=== PATIENT | male | born 1965 | race Caucasian/White ===

== ENCOUNTER 2022-07-03 17:49 | Observation (INO) ==
[2022-07-03] MEDS ORDERED: SODIUM CHLORIDE 0.9% 1000ML 1,000 ML IV ONE (18:59)
[2022-07-03] MEDS ORDERED: HYDROmorphone INJ 0.5 MG/0.5 ML SYR IV STA ×2 (19:29→20:35)
[2022-07-03] MEDS ORDERED: ONDANSETRON INJ 2 MG/ML 2 ML VIAL IV STA (19:29)
[2022-07-03] MEDS ORDERED: KETOROLAC TROMETHAMINE 15 MG/ML VIAL IV STA (19:29)
[2022-07-03] MEDS ORDERED: ACETAMINOPHEN 500 MG TAB PO STA (19:29)
[2022-07-03 19:41] LABS: Basophils # (auto) 0.04 K/uL (0-0.2); Basophils % (auto) 0.5 %; Eosinophils # (auto) 0.08 K/uL (0-0.50); Eosinophils % (auto) 1.1 %; Immature Granulocytes # (auto) 0.03 K/uL (0.00-0.02); Immature Granulocytes % (auto) 0.4 %; Lymphocytes % (auto) 12.2 %; Mean Corpuscular Hemoglobin 29.2 pg (25.0-34.0); Mean Corpuscular Hgb Conc 33.3 g/dL (32.0-36.0); Mean Corpuscular Volume 87.5 fL (80.0-100.0); Mean Platelet Volume 10.1 fL (9.4-12.4); Monocytes # (auto) 0.82 K/uL (0.24-0.82); Monocytes % (auto) 11.1 %; Neutrophils # (auto) 5.49 K/uL (1.4-6.5); Neutrophils % (auto) 74.7 %; Platelet Count 240 K/uL (130-400); RDW Coefficient of Variation 12.6 % (11.5-14.5); RDW Standard Deviation 40.1 fL (36.4-46.3); Red Blood Count 5.14 M/uL (4.63-6.08); White Blood Count 7.36 K/ul (4.8-10.8)
[2022-07-03 20:03] LABS: Albumin Globulin Ratio 1.7 (0.9-2); Albumin Level 4.3 gm/dl (3.4-5.0); BUN Creatinine Ratio 14.7 (10-20); Bilirubin,Total 0.6 mg/dl (0.2-1.0); Calcium 9.4 mg/dl (8.5-10.1); Est GFR (African American) 81.1 ml/min; Globulin 2.5 gm/dl (2.5-4.0); Potassium 4.3 mmol/L (3.5-5.1); Total Protein 6.8 gm/dl (6.0-8.3)
--- NOTE | 2022-07-03 20:14 | XRay Report ---
XR chest 1V portable HISTORY: Covid positive. Cough. COMPARISON: None. FINDINGS: The lungs are clear. Cardiac silhouette is normal in size. No pleural effusions. No pneumot horax. IMPRESSION: No acute process. ACT 112: Negative or not required by law. Electronically signed by: Morteza Sen M.D. 07/03/2022 8:13 PM
--- NOTE | 2022-07-03 20:15 | Emergency Department Note ---
Impression & Plan COVID-19, Flu-like symptoms ED Provider Note INFORMANT: Patient ED PROVIDER(S): Guilherme Del Cid MD CHIEF COMPLAINT: COVID PLAN: Disposition: Admitted Condition: Good Outpatient prescription management: none Referral: None MEDICAL DECISION MAKING: Patient presented to emergency department because of malaise and flulike symptoms. He had a positive COVID home test. Work-up was initiated. He had an unremarkable CBC and chemistry panel. The patient's chest x-ray was negative. He was treated with saline hydration, Toradol, Tylenol, and IV Dilaudid. The patient was given a second dose of IV Dilaudid 0.5 mg. He had an ice pack applied to his neck as he requested this. He was feeling much better and clinically looked well. He maintained good vital signs throughout his entire time in the emergency department. We did discuss treatment with Willy and I did review this with the pharmacist. We went over his medications and interaction potential. The patient also then noted his pharmacy that he would like for discharge. The patient then felt like he could not be discharged as he was concerned that he would not be able to deal with his illness. He states that he was in mental health crisis even before he traveled to [place]. The patient feels like he is going to breakdown and harm himself if he is discharged. I did notify the ED psychiatric case maker. She noted with the COVID illness that the patient would need to be admitted medically and psychiat ry would need to be consulted.I did consult with Dr. Laboy of internal medicine. We discussed the case. She evaluated patient and admitted him for further management. Triage Nursing notes reviewed and agree them. Vital Signs: reviewed and remarkable for no significant abnormalities Differential diagnosis: Viral syndrome, otitis, pharyngitis, pneumonia, influenza, meningitis, urinary tract infection, sepsis, bacteremia, as well as other pathologies. Diagnostics interpreted by me: ECG: none Cardiac Monitoring: Cardiac monitoring ordered by me: The patient was placed on continuous cardiac monitoring and observed. It revealed a normal sinus rhythm at 93 beats per minute without ectopy or evidence of dysrhythmia. Imaging studies: Chest x-ray. Findings: A chest x-ray was performed and revealed no pneumothorax, effusion, infiltrate, pulmonary edema, free air under the diaphragm, or wide mediastinum. Impression: No acute disease. HPI: The patient is a 57 year old male who presents to the Emergency Room with complaints of flulike symptoms. This started about 3 days ago with a dry cough and is much worse today. The patient also notes the following associated symptoms, myalgias, arthralgias, headache, continued dry cough. The patient has tried and tramadol for relieving factors. Current pain is rated as 9/10. Patient states he has a history of chronic pain syndrome from severe depression. He took a home COVID test today was positive. He had some nausea as well. Pt denies LOC, chills, diaphoresis, visual changes, neck pain, chest pain, breathing difficulties, vomiting, abdominal pain, back pain, melena, hematochezia, urinary symptoms, numbness, weakness, lymphadenopathy, rash, or other complaints. ROS: See above HPI for pertinent positives & negatives. A total of 10 systems reviewed and were otherwise negative. PAST MEDICAL HISTORY:See Below , depression, chronic pain PAST SURGICAL HISTORY:See Below, FAMILY HISTORY:See Below SOCIAL HISTORY:See Below, non-smoker. Visiting from [place]. HOME MEDICATIONS:See Below ALLERGIES:See Below VITALS:See Below PHYSICAL EXAMINATION: GENERAL: Awake, alert, mildly ill-appearing, in no distress HENT: Normocephalic, atraumatic. Oropharynx unremarkable. EYES: Normal conjunctiva. Sclera non-icteric. NECK: Inspection normal. Non-tender. Supple. No nuchal rigidity. FROM. No francis s. RESPIRATORY: Clear to auscultation. No wheezes. No rales. Normal respiratory effort. CARDIAC: Borderline tachycardic rate. Normal rhythm. No murmurs. No rubs. Extremities warm and well perfused. Pulses equal. No JVD. GI: Soft, non-distended. No tenderness to palpation. No rebound or guarding. No masses. RECTAL: Deferred. MUSCULOSKELETAL: Atraumatic. Chest examination reveals no tenderness. The back is symmetrical on inspection without obvious abnormality. There is no CVA tenderness to palpation. No joint edema. LOWER EXTREMITIES: Calves are equal size bilaterally and non-tender. No edema. No discoloration. NEURO: Normal sensorium. No sensory or motor deficits noted. SKIN: No rash or jaundice noted. Guilherme Del Cid MD Past Med/Surg History Medical History (Updated 07/04/22 @ 00:48 by Sarah Laboy DO) Anxiety Depression Diabetes Fibromyalgia Surgical History (Updated 07/04/22 @ 00:48 by Sarah Laboy DO) No significant past surgical history Family History (Updated 07/04/22 @ 00:48 by Sarah Laboy DO) Other Anxiety Social History Smoking Status: Never smoker Preferred Language: Faroese Feels Safe at Home: Yes Allergies Allergies Allergy/AdvReac Type Severity Reaction Status Date / Time bupropion [From Wellbutrin] Allergy Intermediate Rash Verified 07/03/22 20:52 nicotine AdvReac Intermediate Nausea Verified 07/03/22 20:52 Home Meds Home Medications Medication Instructions Recorded Confirmed atorvastatin 10 mg tablet 10 mg PO DAILY 07/03/22 07/03/22 duloxetine 60 mg capsule,delayed 60 mg PO DAILY 07/03/22 07/03/22 release fluticasone propionate 50 2 spray intranasal DAILY 07/03/22 07/03/22 mcg/actuation nasal spray,suspension lorazepam 1 mg tablet 1 mg PO BID 07/03/22 07/03/22 meloxicam 15 mg tablet 15 mg PO DAILY 07/03/22 07/03/22 metformin 500 mg tablet,extended 500 mg PO DAILY 07/03/22 07/03/22 release 24 hr methylphenidate HCl 10 mg tablet 10 mg PO DAILY 07/03/22 07/03/22 [id number]-reg-DV 0.4 mg-calcium 162 1 tab PO DAILY 07/03/22 07/03/22 mg-iron 18 ss-mvosrca-gwjqvk tablet tramadol 50 mg tablet 50 mg PO Q4H PRN Pain 07/03/22 07/04/22 cyclobenzaprine 10 mg tablet 10 mg PO BID PRN MUSCLE SPASMS 07/04/22 07/04/22 Results & Data (ED) Vital Signs Vital Signs - 24 hr 07/03/22 18:07 07/03/22 19:35 07/03/22 20:00 Temperature 37.6 C H Temperature Source Temporal Artery Scan Pulse Rate 101 H Pulse Rate from SpO2 Sensor 98 H Respiratory Rate 23 Respiratory Effort / Characteristics Non-Labored Respiratory Depth Normal Blood Pressure 146/89 H 143/113 H Blood Pressure Mean 108 123 Pulse Oximetry 98 95 Oxygen Delivery Method Room Air Sepsis Recent Fever Within 48 Hours Yes Sepsis New/Unexplained Change in Mental Status N/A Sepsis Action Taken by Nursing No Action Required 07/03/22 20:00 07/03/22 20:30 07/03/22 21:00 Temperature Temperature Source Pulse Rate Pulse Rate from SpO2 Sensor 99 H 97 H Respiratory Rate Respiratory Effort / Characteristics Respiratory Depth Blood Pressure 140/91 Blood Pressure Mean 107 Pulse Oximetry 93 92 Oxygen Delivery Method Sepsis Recent Fever Within 48 Hours Sepsis New/Unexplained Change in Mental Status Sepsis Action Taken by Nursing 07/03/22 21:00 07/03/22 21:30 07/03/22 21:30 Temperature Temperature Source Pulse Rate Pulse Rate from SpO2 Sensor 92 H 92 H Respiratory Rate Respiratory Effort / Characteristics Respiratory Depth Blood Pressure 136/89 Blood Pressure Mean 104 Pulse Oximetry 90 91 Oxygen Delivery Method Sepsis Recent Fever Within 48 Hours Sepsis New/Unexplained Change in Mental Status Sepsis Action Taken by Nursing 07/03/22 22:00 07/03/22 22:00 07/03/22 22:30 Temperature Temperature Source Pulse Rate Pulse Rate from SpO2 Sensor 88 Respiratory Rate Respiratory Effort / Characteristics Respiratory Depth Blood Pressure 117/80 126/77 Blood Pressure Mean 92 93 Pulse Oximetry 92 Oxygen Delivery Method Sepsis Recent Fever Within 48 Hours Sepsis New/Unexplained Change in Mental Status Sepsis Action Taken by Nursing 07/03/22 22:30 Temperature Temperature Source Pulse Rate Pulse Rate from SpO2 Sensor 84 Respiratory Rate Respiratory Effort / Characteristics Respiratory Depth Blood Pressure Blood Pressure Mean Pulse Oximetry 91 Oxygen Delivery Method Sepsis Recent Fever Within 48 Hours Sepsis New/Unexplained Change in Mental Status Sepsis Action Taken by Nursing Laboratory Data Result diagrams: 07/03/22 19:29 07/03/22 19:29 Lab Results 07/03/22 07/03/22 07/03/22 Range/Units 19:29 19:29 21:09 WBC 7.36 (4.8-10.8) K/ul RBC 5.14 (4.63-6.08) M/uL Hgb 15.0 (14.0-18.0) g/dl Hct 45.0 (40.1-51.0) % MCV 87.5 (80.0-100.0) fL MCH 29.2 (25.0-34.0) pg MCHC 33.3 (32.0-36.0) g/dL RDW Std Deviation 40.1 (36.4-46.3) fL RDW Coeff of Angela 12.6 (11.5-14.5) % Plt Count 240 (130-400) K/uL MPV 10.1 (9.4-12.4) fL Immature Gran % (Auto) 0.4 % Neut % (Auto) 74.7 % Lymph % (Auto) 12.2 % Collin % (Auto) 11.1 % Eos % (Auto) 1.1 % Baso % (Auto) 0.5 % Neut # (Auto) 5.49 (1.4-6.5) K/uL Lymph # (Auto) 0.90 L (1.2-3.4) K/uL Collin # (Auto) 0.82 (0.24-0.82) K/uL Eos # (Auto) 0.08 (0-0.50) K/uL Baso # (Auto) 0.04 (0-0.2) K/uL Immature Gran # (Auto) 0.03 H (0.00-0.02) K/uL Sodium 137 (136-145) mmol/L Potassium 4.3 (3.5-5.1) mmol/L Chloride 102 (98-107) mmol/L Carbon Dioxide 29 (21-32) mmol/L Anion Gap 6 (3-11) BUN 17 (6-23) mg/dl Creatinine 1.16 (0.6-1.4) mg/dl Est Cr Clr Drug Dosing 94.0 ml/min Est GFR ( Amer) 81.1 ml/min Est GFR (Non-Af Amer) 70.0 ml/min BUN/Creatinine Ratio 14.7 (10-20) Glucose 99 (70-99(Fasting)) mg/dl Calcium 9.4 (8.5-10.1) mg/dl Total Bilirubin 0.6 (0.2-1.0) mg/dl AST 31 (13-39) U/L ALT 33 (7-52) U/L Alkaline Phosphatase 54 (34-104) U/L Total Protein 6.8 (6.0-8.3) gm/dl Albumin 4.3 (3.4-5.0) gm/dl Globulin 2.5 (2.5-4.0) gm/dl Albumin/Globulin Ratio 1.7 (0.9-2) SARS-CoV-2 (PCR) POSITIVE A* (Negative) Administered Medications Discontinued Medications Acetaminophen (Acetaminophen 500 Mg Tab) 1,000 mg PO NOW STA Stop: 07/03/22 19:30 Last Admin: 07/03/22 19:48 Dose: 1,000 mg Documented By: [id number] Hydromorphone HCl (Hydromorphone Inj 0.5 Mg/0.5 Ml Syr) 0.5 mg IV NOW STA Stop: 07/03/22 19:30 Last Admin: 07/03/22 19:49 Dose: 0.5 mg Documented By: [id number] Hydromorphone HCl (Hydromorphone Inj 1 Mg/Ml Syringe) 1 mg IV NOW STA Stop: 07/03/22 20:33 Last Admin: 07/03/22 20:58 Dose: Not Given Documented By: [id number] Hydromorphone HCl (Hydromorphone Inj 0.5 Mg/0.5 Ml Syr) 0.5 mg IV NOW STA Stop: 07/03/22 20:36 Last Admin: 07/03/22 21:07 Dose: 0.5 mg Documented By: [id number] Sodium Chloride (Nss 1000ml) 1,000 mls @ 999 mls/hr IV .Q1H1M ONE Stop: 07/03/22 19:59 Last Infusion: 07/03/22 21:12 Dose: 0 mls/hr Documented By: [id number] Admin: 07/03/22 19:23 Dose: 999 mls/hr Documented By: [id number] Ketorolac Tromethamine (Ketorolac Tromethamine 15 Mg/Ml Vial) 15 mg IV NOW STA Stop: 07/03/22 19:30 Last Admin: 07/03/22 19:49 Dose: 15 mg Documented By: [id number] Ondansetron HCl (Ondansetron Inj 2 Mg/Ml 2 Ml Vial) 4 mg IV NOW STA Stop: 07/03/22 19:30 Last Admin: 07/03/22 19:49 Dose: 4 mg Documented By: [id number] Imaging Data Radiologist's Impression: Chest X-Ray 07/03/22 18:13 XR chest 1V portable HISTORY: Covid positive. Cough. COMPARISON: None. FINDINGS: The lungs are clear. Cardiac silhouette is normal in size. No pleural effusions. No pneumothorax. IMPRESSION: No acute process. ACT 112: Negative or not required by law. Electronically signed by: Morteza Sen M.D. 07/03/2022 8:13 PM Discharge Plan Visit Data Chief Complaint: Flu Like Symptoms Stated Complaint: TESTED POSITIVE COVID,FEVER,BODY ACHE,VERTIGO ED Provider: Guilherme Del Cid Discharge Problem: COVID-19, Flu-like symptoms Patient Disposition: Admitted As Inpatient Discharge Instructions Interventions: ED Discharge Assessment Last Done: 07/04/22 02:03
[2022-07-03] MEDS ORDERED: HYDROmorphone INJ 1 MG/ML SYRINGE IV STA (20:32)
--- NOTE | 2022-07-04 00:38 | History & Physical Report ---
Date of Service July 04, 2022 Assessment & Plan (1) COVID-19: Plan: 57yo male presenting with body pain/anxiety and SI. Also with three days of cough and congestion, body aches. Found to be POSITIVE for Covid-19 infection. Patient has received 2 vaccinations + booster thus far. Has never had Covid-19 before. He is not hypoxic, no respiratory distress. -Continue to monitor -Presently no indication for supplemental O2, Dexamethasone or Remdesivir -Consider Paxlovid treatment on discharge - risk for severe disease include obesity and h/o DM (2) Anxiety: Plan: Patient reports severe anxiety associated with full body pain. Also with SI. Patient verbally contracted for safety during hospital stay. -Continue Duloxetine -Continue Lorazepam BID -Will add PRN Hydroxyzine for anxiety -Continue Tramadol -Continue Meloxicam -Continue Cyclobenzaprine -Ideally avoid additional treatment with opioids (3) Diabetes: Plan: Chronic. Patient reports adequate control with Metformin -Hold Metformin while inpatient -ISS, goal blood sugar 110 - 140 -Continue Atorvastatin (4) Fibromyalgia: Plan: Chronic -Continue Duloxetine, Cyclobenzaprine, Meloxicam, Tramadol History of Present Illness Chief Complaint: anxiety, SI, Covid-19 Primary Care Provider: NO PCP Guilherme Gold is a 57yo male with history of depression and anxiety, DM and fibromyalgia. He is from [place] and follows regularly with a PCP there. He is in [place] presently visiting his cousins. He reports a significant increase in his level of anxiety associated with the trip to [place] - being away from home, out of his routine, some concerns about Covid etc. With his anxiety he gets body pain - mostly in his head, neck and back. His pain is severe at present. He has also had frequent intrusive thoughts of suicide over the last several days. He reports he has thought about overdosing on his medications and thought about driving his car into something to kill himself. He has had prior SI and attempted to cut himself once in the past. Patient also with dry cough and congestion over the last 3 days a well as fever. He denies chest pain, SOB, abdominal pain. He tested POSITIVE for Covid-19 on a home test prior to arrival. Findings confirmed on ER test. His O2 saturations have been adequate. He is vaccinated x 2 and has received a single booster as well. He has been working with his doctor in [place] to get the next booster. Patient was evaluated in the ER. His Covid-19 symptoms were stable - no hypoxia. No indication for treatment with supplemental O2 or Dexamethasone. His pain was treated with IV Toradol as well as Dilaudid and Tylenol. Patient reports that he is unable to go home due to a mental health crisis. He is afraid that his pain will come back and will be untreatable with his home medications. He endorses ongoing suicidal ideations. No HI, AH/VH. Allergies Allergy/AdvReac Type Severity Reaction Status Date / Time bupropion [From Wellbutrin] Allergy Intermediate Rash Verified 07/03/22 20:52 nicotine AdvReac Intermediate Nausea Verified 07/03/22 20:52 Home Medications Medication Instructions Recorded Confirmed Type atorvastatin 10 mg tablet 10 mg PO DAILY 07/03/22 07/03/22 History cyclobenzaprine 10 mg tablet 10 mg PO DIRECTED PRN MUSCLE 07/03/22 07/03/22 History SPASMS duloxetine 60 mg capsule,delayed 60 mg PO DAILY 07/03/22 07/03/22 History release fluticasone propionate 50 2 spray intranasal DAILY 07/03/22 07/03/22 History mcg/actuation nasal spray,suspension lorazepam 1 mg tablet 1 mg PO BID 07/03/22 07/03/22 History meloxicam 15 mg tablet 15 mg PO DAILY 07/03/22 07/03/22 History metformin 500 mg tablet,extended 500 mg PO DAILY 07/03/22 07/03/22 History release 24 hr methylphenidate HCl 10 mg tablet 10 mg PO DAILY 07/03/22 07/03/22 History utcuuysp-wnt-OR 0.4 mg-calcium 162 1 tab PO DAILY 07/03/22 07/03/22 History mg-iron 18 ci-yunognl-xyqekv tablet tramadol 50 mg tablet 50 mg PO DIRECTED PRN Pain 07/03/22 07/03/22 History Past Med/Surg History Medical History (Updated 07/04/22 @ 00:48 by Sarah Laboy DO) Anxiety Depression Diabetes Fibromyalgia Surgical History (Updated 07/04/22 @ 00:48 by Sarah Laboy DO) No significant past surgical history Family History (Updated 07/04/22 @ 00:48 by Sarah Laboy DO) Other Anxiety Social History Smoking Status: Never smoker Preferred Language: Guamanian Feels Safe at Home: Yes Review of Systems Review of Systems: All systems reviewed & are unremarkable except as noted in HPI & below Physical Exam Physical Exam: General: patient resting comfortably, NAD, non-toxic in appearance, AA&O x 4 Skin: warm, dry, intact, no rashes or lesions HEENT: NC/AT, PERRL, EOMI, anicteric sclera, conjunctiva without injection, external ear normal to inspection and nontender, nares patent, moist mucus membranes, dentition intact, no oropharyngeal lesions, neck supple, trachea midline, no LAD, no thyromegaly, no JVD Heart: +S1/S2, regular, no m/r/g Lungs: equal air entry bilaterally, no rales/rhonchi/wheezes Abd: +BS, soft, NT/ND, no masses/organomegaly/ascites Ext: warm, 2+ pulses in UE/LE bilaterally, no clubbing/cyanosis or edema Neuro: nonfocal, patient AA&O x 4, speech intact, no facial droop, moving all extremities on command with equal strength 5/5 Results & Data Results & Data (MN) Vital Signs (Past 12 Hours) Vital Signs Temp Pulse Resp BP Pulse Ox O2 Del Method 07/03/22 22:30 91 07/03/22 22:30 126/77 07/03/22 22:00 92 07/03/22 22:00 117/80 07/03/22 21:30 91 07/03/22 21:30 136/89 07/03/22 21:00 90 07/03/22 21:00 140/91 07/03/22 20:30 92 07/03/22 20:00 93 07/03/22 20:00 143/113 H 07/03/22 19:35 95 07/03/22 18:07 37.6 C H 101 H 23 146/89 H 98 Room Air Laboratory Results Laboratory Results WBC 7.36 K/ul (4.8-10.8) 07/03/22 19:29 RBC 5.14 M/uL (4.63-6.08) 07/03/22 19:29 Hgb 15.0 g/dl (14.0-18.0) 10/18/22 19:29 Hct 45.0 % (40.1-51.0) 07/03/22: MCV 87.5 fL (80.0-100.0) 07/03/22 MCH 29.2 pg (25.0-34.0) 07/03/22 MCHC 33.3 g/dL (32.0-36.0) 07/03/22 RDW Std Deviation 40.1 fL (36.4-46.3) 07/03/22 RDW Coeff of Angela 12.6 % (11.5-14.5) 07/03/22 Plt Count 240 K/uL (130-400) 07/03/22 MPV 10.1 fL (9.4-12.4) 07/03/22 Immature Gran % (Auto) 0.4 % 07/03/22 Neut % (Auto) 74.7 % 07/03/22 Lymph % (Auto) 12.2 % 07/03/22: [place] % (Auto) 11.1 % 07/03/22 Eos % (Auto) 1.1 % 07/03/22 Baso % (Auto) 0.5 % 07/03/22 Neut # (Auto) 5.49 K/uL (1.4-6.5) 07/03/22 Lymph # (Auto) 0.90 K/uL (1.2-3.4) L 07/03/22 [place] # (Auto) 0.82 K/uL (0.24-0.82) 07/03/22 Eos # (Auto) 0.08 K/uL (0-0.50) 07/03/22 Baso # (Auto) 0.04 K/uL (0-0.2) 07/03/22 Immature Gran # (Auto) 0.03 K/uL (0.00-0.02) H 07/03/22: Sodium 137 mmol/L (136-145) 07/03/22 Potassium 4.3 mmol/L (3.5-5.1) 10/18/22 19:29 Chloride 102 mmol/L (98-107) 07/03/22 19:29 Carbon Dioxide 29 mmol/L (21-32) 07/03/22 19:29 Anion Gap 6 (3-11) 07/03/22 19:29 BUN 17 mg/dl (6-23) 07/03/22 19: Creatinine 1.16 mg/dl (0.6-1.4) 07/03/22 19: Est Cr Clr Drug Dosing 94.0 ml/min 07/03/22 19:29 Est GFR ( Amer) 81.1 ml/min 07/03/22 19:29 Est GFR (Non-Af Amer) 70.0 ml/min 07/03/22 19: BUN/Creatinine Ratio 14.7 (10-20) 07/03/22 19: Glucose 99 mg/dl (70-99(Fasting)) 07/03/22 19: Calcium 9.4 mg/dl (8.5-10.1) 07/03/22 19: Total Bilirubin 0.6 mg/dl (0.2-1.0) 07/03/22 19:29 AST 31 U/L (13-39) 07/03/22 19:29 ALT 33 U/L (7-52) 07/03/22 19:29 Alkaline Phosphatase 54 U/L (34-104) 07/03/22 19:29 Total Protein 6.8 gm/dl (6.0-8.3) 07/03/22 19: Albumin 4.3 gm/dl (3.4-5.0) 07/03/22 19: Globulin 2.5 gm/dl (2.5-4.0) 07/03/22 19:29 Albumin/Globulin Ratio 1.7 (0.9-2) 07/03/22 19:29 SARS-CoV-2 (PCR) POSITIVE (Negative) A* 07/03/22 21:09 Impressions Chest X-Ray 07/03/22 18:13 XR chest 1V portable HISTORY: Covid positive. Cough. COMPARISON: None. FINDINGS: The lungs are clear. Cardiac silhouette is normal in size. No pleural effusions. No pneumothorax. IMPRESSION: No acute process. ACT 112: Negative or not required by law. Electronically signed by: Morteza Sen M.D. 07/03/2022 8:13 PM Code Status & VTE Plan VTE Prophylaxis Plan VTE Prophylaxis will be ordered: Yes PG Care Time/CCT Total # of Minutes Spent Total Time Spent with Patient: Total time spent is greater than 50% in coordination of care (as documented) at patient's floor/unit and/or counseling patient: Coding Level of Care Code INT OBSERVATION CARE 50M LVL 2 Diagnoses COVID-19 U07.1 Anxiety F41.9 Diabetes E11.9 Fibromyalgia M79.7
[2022-07-04] MEDS ORDERED: GLUCOSE 10 TAB/TUBE PO PRN (02:17)
[2022-07-04] MEDS ORDERED: GLUCAGON FOR INJ 1 MG VIAL SQ PRN (02:17)
[2022-07-04] MEDS ORDERED: GLUCOSE 40% GEL 15 GM TUBE PO PRN (02:17)
[2022-07-04] MEDS ORDERED: CARBOHYDRATES FOR HYPOGLYCEMIA PO PRN (02:17)
[2022-07-04] MEDS ORDERED: DEXTROSE 50% 50 ML SYRINGE IV PRN (02:17)
[2022-07-04] MEDS ORDERED: ONDANSETRON INJ 2 MG/ML 2 ML VIAL IV PRN (02:17)
[2022-07-04] MEDS ORDERED: hydrOXYzine HCl 10 MG TAB PO PRN (02:17)
[2022-07-04] MEDS: traMADol HCL 50 MG TABLET PO PRN ×4 (04:46→19:14)
[2022-07-04] MEDS: CYCLOBENZAPRINE HCL 10 MG TAB PO PRN ×2 (05:18→21:51)
[2022-07-04] MEDS ORDERED: MELATONIN 3 MG TAB PO PRN (05:58)
[2022-07-04] MEDS ORDERED: LORazepam 1 MG TAB PO PRN (05:59)
--- NOTE | 2022-07-04 06:01 | Communication Note ---
Date of Service: July 04, 2022 Messaged by nursing that patient was belligerent and yelling at staff. Patient asking for Ambien for sleep and for his 1mg PO Ativan BID scheduled (home med) to be given on a prn basis so that he can receive it when he feels he needs it. I am adding prn melatonin to sleep. Not adding Ambien. Changing BID Ativan to q12h prn. Per review of his med list, I am concerned about polypharmacy. Psych to follow.
[2022-07-04] MEDS ORDERED: METHYLPHENIDATE HCL 10 MG TABLET PO SCH (07:00)
[2022-07-04 07:38] LABS: Estimated Average Glucose 143 mg/dl; Hemoglobin A1C 6.6 % (4.5-5.6)
[2022-07-04] MEDS: MELOXICAM 7.5 MG TAB PO SCH (07:59)
[2022-07-04] MEDS: ATORVASTATIN 10 MG TAB PO SCH (07:59)
[2022-07-04] MEDS: ENOXAPARIN INJ 40 MG/0.4 ML SYR SQ SCH (08:00)
[2022-07-04] MEDS: FLUTICASONE PROPIONATE NA SPR 16 GM BTL SCH (08:00)
[2022-07-04] MEDS: DULoxetine HCL 60 MG CAP PO SCH (08:01)
[2022-07-04] MEDS: ACETAMINOPHEN 500 MG TAB PO PRN ×2 (08:11→19:13)
[2022-07-04] MEDS: INSULIN ASPART PER UNIT SC SCH ×4 (08:44→22:39)
[2022-07-04] MEDS ORDERED: Flu Vaccine (Fluarix) 0.5mL SYR (Standard Dose) IM ONE (09:00)
[2022-07-04] MEDS ORDERED: LORazepam 1 MG TAB PO SCH (09:00)
--- NOTE | 2022-07-04 09:21 | Electrocardiogram Report ---
Test Reason : Blood Pressure : / mmHG Vent. Rate : 099 BPM Atrial Rate : 099 BPM P-R Int : 150 ms QRS Dur : 088 ms QT Int : 308 ms P-R-T Axes : 026 033 -42 degrees QTc Int : 395 ms Sinus rhythm with Premature atrial complexes Incomplete right bundle branch block Diffuse Minor Nonspecific T wave abnormality Abnormal ECG No previous ECGs available Confirmed by Jean Carson ([id number]) on 07/04/2022 9:20:52 AM Referred By: REFERRED SELF Confirmed By:Jean Carson
--- NOTE | 2022-07-04 12:08 | Hospitalist Progress Note ---
Date of Service July 04, 2022 Assessment & Plan (1) COVID-19: Plan: Supportive care. Parenteral steroid therapy. He is not requiring oxygen with no evidence of viral pneumonia. Patient has received 2 vaccinations + booster thus far. Has never had Covid-19 before. (2) Anxiety: Plan: Supportive care. Continue Duloxetine. Continue Lorazepam BID. Await psychiatry consultation and recommendations (3) Diabetes: Plan: Chronic. Type II. Patient reports adequate control with Metformin. Hold Metformin while inpatient. ADA diet. Sliding scale coverage as needed. Intravenous steroids may cause transient hyperglycemia. (4) Fibromyalgia: Plan: Chronic. Continue Duloxetine, Cyclobenzaprine, Meloxicam, Tramadol Plan Eventual discharge to home Admission and Anticipated Discharge Date Admission Date: July 04, 2022 Subjective Alert and oriented. No distress. He is complaining of a headache and flulike symptoms. He agrees to intravenous Decadron therapy. Psychiatry evaluation is pending. He is not requiring any supplemental oxygen at this time and is hemodynamically stable. Review of Systems Review of Systems: Constitutional-objective fever symptoms. Headache ENT-no blurred vision, no double vision, no epistaxis, no sore throat Respiratory-no cough, no wheezing, no shortness of breath Cardiac-no palpitations, no chest pain, no syncope GI-no nausea, vomiting, diarrhea, melena, hematochezia -no urinary retention, no urinary incontinence, no dysuria, no hematuria Musculoskeletal-no joint pain, no muscle tenderness Skin-no bruising, no rashes, no pruritus Neuro-no isolated weakness, no paresthesia, no weakness Psych- suicidal ideation Physical Exam Physical Exam: General-alert and oriented x3. Chills HEENT-head atraumatic and normocephalic, pupils equal and reactive to light, extraocular muscles intact Neck-no lymphadenopathy or thyromegaly, trachea midline Chest-clear to auscultation percussion. No rales wheezing or rhonchi Cardiac-regular rate and rhythm, normal S1 and S2, no murmurs Abdomen-normal bowel sounds, nontender, no hepatosplenomegaly Extremities-no cyanosis, clubbing, or edema Neuro-cranial nerves II through XII intact, motor and sensory function within normal limits, strength symmetrical , no focal deficits Psych-depressed affect Results & Data Results & Data ([facility]) Vital Signs (Past 12 Hours) Vital Signs Temp Pulse Resp BP Pulse Ox O2 Del Method 07/04/22 08:37 37.5 C 93 H 16 114/74 92 Room Air 07/04/22 02:31 37.4 C 93 H 18 133/78 97 Room Air 07/04/22 02:17 37.4 C 93 H 18 133/78 97 Room Air 07/04/22 02:00 92 H 20 138/94 98 Room Air Laboratory Results 07/03/22 19:29 07/03/22 19:29 PG Care Time/CCT Total # of Minutes Spent Total Time Spent with Patient: Total time spent is greater than 50% in coordination of care (as documented) at patient's floor/unit and/or counseling patient: Coding Level of Care Code 18050 Subseq Hosp Care Lvl 3 Diagnoses COVID-19 U07.1 Anxiety F41.9 Diabetes E11.9 Fibromyalgia M79.7
--- NOTE | 2022-07-04 14:09 | Psychiatric Consultation ---
Date of Consultation July 04, 2022 Impression / Recommendations Impression 57 yo man admitted for COVID-19+ symptoms and after making statements of SI during discharge process from ED resulting in medical admission. Diagnostically consistent with history of MDD, OMKAR with adjustment disorder with mixed disturbance of emotions and conduct in context of pain from COVID-19 and contingent SI/possible malingering component with wanting pain medication due to distress and using SI as means to achieve this/relay this level of physical distress. Acute risk of self-harm is now low given denial of SI, future- oriented, outpatient providers, improved sleep, improved mood, lack of access to lethal means and improvement in pain with tramadol. Chronic risk remains moderate given history of prior psychiatric hospitalizations, chronic pain/chronic medical condition but no history of prior attempts and feels well supported by his cousin and outpatient providers in [place]. He is not interested in nor does he meet criteria for inpatient psychiatric hospitalization at this time. Agree with Cymbalta, lorazepam and hydroxyzine as ordered. (1) Adjustment disorder with mixed disturbance of emotions and conduct: (2) COVID-19: (3) Depression: (4) Anxiety: (5) Fibromyalgia: Plan -Can discontinue 1-on-1 -Doesn't meet 302 criteria any longer, can leave AMA if desired -Stable for discharge from psychiatric standpoint -Encouraged him to complete safety plan which he is agreeable to, and will be provided with workbook for additional coping skills and local resources -Psych souleymane to confirm his outpatient appointments in [place] (has scheduled f/up with psych and therapist but he cannot recall specific dates/times of these appointments) -Plans to return to cousin's home where he feels well supported and can remain until he recovers from COVID-19 infection Risk Factors Assessment Male: Yes : Yes Do You Have Access To A Gun?: No Health Problems: Yes Mental Health Diagnoses: Yes Substance Use Disorders: No Previous Attempt: No Family History of Suicide: No Previous Psychiatric Hospitalization: Yes Hopelessness: No Protective Factors Assessment Stable Relationships: Yes Supportive Family: Yes Good Rapport with Provider: Yes Telehealth Telehealth Options: Telephone only For the duration of the visit, provider was performing the assessment from: The same facility as the patient After establishing a telemedicine visit, patient was: Patient was verified with two unique identifiers, Patient/authorized rep acknowledged consent and under standing and Gave permission to continue telehealth session Total Time Spent (minutes): 25 Psych History Identifying Data 57 yo man from [place], in town visiting extended family, with history of depression and anxiety admitted medically for COVID, malaise and SI. Psychiatry consulted for risk assessment. Chief Complaint "I feel better today". History of Present Illness Visit done via telemedicine as patient is COVID -19+. Guilherme presented to the ED yesterday with flu-like symptoms and malaise after positive home COVID-19 test. He was evaluated in the ED and plans were made for discharge and at that time he expressed concern he couldn't manage his symptoms at home and endorsed SI. This was documented by ED RN on 07/04/22 at 12:32 am as "I have been having thoughts of harming myself. On the drive up here I thought about driving my vehicle into a wall. I have also thought about heading home to [place], taking a concoction of pills, taking my boat [place], and drowning myself." He was therefore admitted medically. Overnight on medical floor he was noted to be belligerent toward staff and RN demanding Ambien and asking for his ativan to be switched to prn from scheduled. Today he was seen in person by psych liason with further history per note on 07/04/22: "Met with patient for initial psychiatric assessment. 1:1 at bedside per suicide precaution protocol. Patient lying in bed. He answers questions asked of him. Reports pain all over but focused on his headache currently. States he had "a rough, long night. I didn't sleep. They wouldn't give me the pain meds they gave me in the ER. I understand that, but they aren't giving me anything at all". He reports residing in [place] and drove to [place] to visit his cousin, Melany, and her . Patient is currently staying with cousin and feels "they are super supportive". He gives permission to speak with Melany regarding safety concerns/discharge planning. Patient reports being prescribed medications from a psychiatrist (Dr. Wu) in [place], he also see's a therapist. Patient continues to report thoughts of suicide, denies a current plan/intent. He has a history of inpatient treatment "2 or 3" times, also reports completing a partial program this past spring/summer. Will provide [facility] workbook for patient review and complete safety plan when able, patient verbalized understanding." This afternoon he states "once they started giving me pain medication I finally got some sleep" and reports improvement in his headache. He notes his psychiatric state is "better" due to this pain relief and citing that staff last night were "gas lighting me" and "we got into it" but feels well supported today. He denies any SI today and agrees to let nursing know if these thoughts reoccur. He notes a history of depression and that he wanted to take this trip to [place] but was quite depressed and then COVID "sent things over the edge". He's glad now that he's starting to feel better physically and that has improved his mood. Takes Cymbalta, lorazepam, Ambien and Ritalin as needed. Has chronic pain related to possible fibromyalgia versus a peripheral nerve disease for which he is managed with medication by providers in [place]. Past Psychiatric History Current Psychiatric Diagnosis: depression, anxiety, ADHD Outpatient Services: psychiatrist and therapy in [place] Previous Psych Admissions: yes-2-3 times Do You Have Access To A Gun?: No History of Previous Suicide Attempt: No Allergies Allergy/AdvReac Type Severity Reaction Status Date / Time bupropion [From Wellbutrin] Allergy Intermediate Rash Verified 07/03/22 20:52 nicotine AdvReac Intermediate Nausea Verified 07/03/22 20:52 Home Medications Medication Instructions Recorded Confirmed Type atorvastatin 10 mg tablet 10 mg PO DAILY 07/03/22 07/03/22 History duloxetine 60 mg capsule,delayed 60 mg PO DAILY 07/03/22 07/03/22 History release fluticasone propionate 50 2 spray intranasal DAILY 07/03/22 07/03/22 History mcg/actuation nasal spray,suspension lorazepam 1 mg tablet 1 mg PO BID 07/03/22 07/03/22 History meloxicam 15 mg tablet 15 mg PO DAILY 07/03/22 07/03/22 History metformin 500 mg tablet,extended 500 mg PO DAILY 07/03/22 07/03/22 History release 24 hr methylphenidate HCl 10 mg tablet 10 mg PO DAILY 07/03/22 07/03/22 History [id number]-[id number]-[id number] 0.4 mg-calcium 162 1 tab PO DAILY 07/03/22 07/03/22 History mg-iron 18 be-wgmzvgs-qexwfj tablet tramadol 50 mg tablet 50 mg PO Q4H PRN Pain 07/03/22 07/04/22 History cyclobenzaprine 10 mg tablet 10 mg PO BID PRN MUSCLE SPASMS 07/04/22 07/04/22 History Family History no hx of by suicide Substance Abuse History denies any hx of problematic substance use, uses alcohol occasionally, uses marijuana occasionally (he notes this is legal in [place]) Personal History Living Arrangements: Home ([place]) Beliefs That Will Affect Care: None Patient History Medical History Anxiety Depression Diabetes Fibromyalgia Surgical History No significant past surgical history Family History Other Anxiety Social History Smoking Status: Never smoker Hx Alcohol Use: Yes Alcohol type: beer and hard liquor Hx Substance Use: Yes Last Used Substance Other:: 1 week ago Preferred Language: Citizen [place] Communication Ability: Effective Searchlight Operator Required: No Beliefs That Will Affect Care: None Current Living Situation: Alone Current Living Situation Comment: lives alone in a single story in [place] Feels Safe at Home: Yes Assistive Devices: None Physical Exam Psychiatric: Orientation: alert and oriented x 3 Speech: normal rate/rhythm/volume of speech Mood: + depressed mood; no anxious mood Thought Process: goal directed thought process Thought Content: reality based without delusions Suicidal Thoughts: denies suicidal thoughts Homicidal Thoughts: denies homicidal thoughts Hallucinations: no auditory hallucinations and no visual hallucinations Insight: + fair insight Judgement: + fair judgement Vital Signs (Past 24 Hours): Last Vital Signs Temp 37.5 C 07/04/22 08:37 Pulse 93 H 07/04/22 08:37 Resp 16 07/04/22 08:37 BP 114/74 07/04/22 08:37 Pulse Ox 92 07/04/22 08:37 O2 Del Method 07/04/22 08:37 Review of Systems All systems reviewed & are unremarkable except as noted in HPI & below (YEPEZ, chronic pain) Results & Data (PSY) Medications Administered Acetaminophen (Acetaminophen 500 Mg Tab) 1,000 mg PO Q8H PRN PRN Reason: pain, headache, or fever Stop: 08/03/22 06:45 Last Admin: 07/04/22 08:11 Dose: 1,000 mg Documented By: MARYBEL Atorvastatin Calcium (Atorvastatin 10 Mg Tab) 10 mg PO DAILY MICHELLE Stop: 08/03/22 08:59 Last Admin: 07/04/22 07:59 Dose: 10 mg Documented By: MARYBEL Cyclobenzaprine HCl (Cyclobenzaprine Hcl 10 Mg Tab) 10 mg PO BID PRN PRN Reason: MUSCLE SPASMS Stop: 08/03/22 02:16 Last Admin: 07/04/22 05:18 Dose: 10 mg Documented By: ELISABETH Duloxetine HCl (Duloxetine Hcl 60 Mg Cap) 60 mg PO DAILY MICHELLE Stop: 08/03/22 08:59 Last Admin: 07/04/22 08:01 Dose: Not Given Documented By: MARYBEL Enoxaparin Sodium (Enoxaparin Inj 40 Mg/0.4 Ml Syr) 40 mg SQ QAM MICHELLE Stop: 08/03/22 08:59 Last Admin: 07/04/22 08:00 Dose: 40 mg Documented By: MARYBEL Fluticasone Propionate (Fluticasone Propionate Na Spr 16 Gm Btl) 2 sprays NA DAILY MICHELLE Stop: 08/03/22 08:59 Last Admin: 07/04/22 08:00 Dose: 2 sprays Documented By: MARYBEL Insulin Aspart (Insulin Aspart Per Unit) 0 units SC ACHS MICHELLE Stop: 08/03/22 07:29 Last Admin: 07/04/22 12:31 Dose: 2 units Documented By: ROSA MARIA Co-signed By: REMIGIO Admin: 07/04/22 08:44 Dose: 2 units Documented By: ROSA MARIA Co-signed By: EDIN Meloxicam (Meloxicam 7.5 Mg Tab) 15 mg PO DAILY MICHELLE Stop: 08/03/22 08:59 Last Admin: 07/04/22 07:59 Dose: 15 mg Documented By: MARYBEL Tramadol HCl (Tramadol Hcl 50 Mg Tablet) 50 mg PO Q4H PRN PRN Reason: Pain Stop: 08/03/22 02:16 Last Admin: 07/04/22 09:24 Dose: 50 mg Documented By: Admin: 07/04/22 04:46 Dose: 50 mg Documented By: ELISABETH Coding Level of Care Code 45571 Inpt Consult Level 3 Diagnoses Adjustment disorder with mixed disturbance of emotions and conduct F43.25 COVID-19 U07.1 Depression F32.A Anxiety F41.9 Fibromyalgia M79.7 Time Spent (min) 35
[2022-07-04] MEDS: dexAMETHasone 4 MG in SYRINGE 0 ML IV SCH ×2 (14:38→21:51)
[2022-07-05] MEDS: traMADol HCL 50 MG TABLET PO PRN ×2 (04:33→08:08)
[2022-07-05] MEDS: ACETAMINOPHEN 500 MG TAB PO PRN (04:34)
[2022-07-05] MEDS: dexAMETHasone 4 MG in SYRINGE 0 ML IV SCH ×2 (05:26→12:41)
[2022-07-05] MEDS: ATORVASTATIN 10 MG TAB PO SCH (08:09)
[2022-07-05] MEDS: ENOXAPARIN INJ 40 MG/0.4 ML SYR SQ SCH (08:10)
[2022-07-05] MEDS: MELOXICAM 7.5 MG TAB PO SCH (08:11)
[2022-07-05] MEDS: FLUTICASONE PROPIONATE NA SPR 16 GM BTL SCH (08:11)
[2022-07-05] MEDS: DULoxetine HCL 60 MG CAP PO SCH (08:12)
[2022-07-05] MEDS: INSULIN ASPART PER UNIT SC SCH ×2 (09:06→12:41)
--- NOTE | 2022-07-05 11:20 | Discharge Summary ---
Date of Service July 05, 2022 Admission HPI Per Admitting Provider Guilherme Gold is a 57yo male with history of depression and anxiety, DM and fibromyalgia. He is from [place] and follows regularly with a PCP there. He is in [place] presently visiting his cousins. He reports a significant increase in his level of anxiety associated with the trip to [place] - being away from home, out of his routine, some concerns about Covid etc. With his anxiety he gets body pain - mostly in his head, neck and back. His pain is severe at present. He has also had frequent intrusive thoughts of suicide over the last several days. He reports he has thought about overdosing on his medications and thought about driving his car into something to kill himself. He has had prior SI and attempted to cut himself once in the past. Patient also with dry cough and congestion over the last 3 days a well as fever. He denies chest pain, SOB, abdominal pain. He tested POSITIVE for Covid-19 on a home test prior to arrival. Findings confirmed on ER test. His O2 saturations have been adequate. He is vaccinated x 2 and has received a single booster as well. He has been working with his doctor in [place] to get the next booster. Patient was evaluated in the ER. His Covid-19 symptoms were stable - no hypoxia. No indication for treatment with supplemental O2 or Dexamethasone. His pain was treated with IV Toradol as well as Dilaudid and Tylenol. Patient reports that he is unable to go home due to a mental health crisis. He is afraid that his pain will come back and will be untreatable with his home medications. He endorses ongoing suicidal ideations. No HI, AH/VH. Principal Diagnosis COVID-19 illness, suicidal ideation Discharge Exam General-alert and oriented x3. Chills HEENT-head atraumatic and normocephalic, pupils equal and reactive to light, extraocular muscles intact Neck-no lymphadenopathy or thyromegaly, trachea midline Chest-clear to auscultation percussion. No rales wheezing or rhonchi Cardiac-regular rate and rhythm, normal S1 and S2, no murmurs Abdomen-normal bowel sounds, nontender, no hepatosplenomegaly Extremities-no cyanosis, clubbing, or edema Neuro-cranial nerves II through XII intact, motor and sensory function within normal limits, strength symmetrical , no focal deficits Psych-depressed affect Discharge Data Allergies Allergy/AdvReac Type Severity Reaction Status Date / Time bupropion [From Wellbutrin] Allergy Intermediate Rash Verified 07/03/22 20:52 nicotine AdvReac Intermediate Nausea Verified 07/03/22 20:52 Consultations 07/04/22 00:07 ED Decision to Admit Stat 07/04/22 02:17 Consult Psychiatry Routine Hospital Course (1) COVID-19: Supportive care. Parenteral steroid therapy to help with symptoms. Will discharge on a Medrol 4 mg Dosepak tapering dose. He is not requiring oxygen with no evidence of viral pneumonia. Patient has received 2 vaccinations + booster thus far. Has never had Covid-19 before. (2) Anxiety: Supportive care. Continue Duloxetine. Continue Lorazepam BID. (3) Diabetes: Chronic. Type II. Patient reports adequate control with Metformin. Hold Metformin while inpatient. Restart at discharge. ADA diet. Sliding scale coverage as needed. (4) Fibromyalgia: Chronic. Continue Duloxetine, Cyclobenzaprine, Meloxicam, Tramadol (5) Suicidal ideation: Resolved. Patient was seen by psychiatry and cleared to be discharged to home Plan Discharged today, July 13 Total Time Total Time Spent Total Time Spent (In Minutes): 35 minutes Discharge Plan Discharge Items Patient Disposition: Home - Self-Care Reason For Visit: SI, COVID-19 INFECTION Discharge Diagnosis: COVID-19 illness, suicidal ideation Activity: Resume your previous activity Non-emergency contact: Primary Care Provider Call non-emergency contact if: you have any medication questions Follow-up/Referrals: Dr. Wu (Psychiatrist) [Other] (Next appointment is September 25. Please contact provider if you feel you need to be seen sooner. ) Sarah Chavis (Therapist) [Other] (Next Appointment is 07/11/22 via telehealth. ) PCP,NO [Primary Care Provider] - Diet: Carb Consistent or DM2 and Heart Healthy Addtl Attending Provider Instructions: Treat viral symptoms symptomatically. Take Medrol 4 mg Dosepak as directed Pending Studies at Discharge: No Stand-Alone Forms: [employer], Smoking Cessation Medications and DC Order Prescriptions: New methylprednisolone 4 mg tablets,dose pack 4 mg PO DIRECTED Qty: 1 0RF Continued atorvastatin 10 mg tablet 10 mg PO DAILY methylphenidate HCl 10 mg tablet 10 mg PO DAILY meloxicam 15 mg tablet 15 mg PO DAILY tramadol 50 mg tablet 50 mg PO Q4H PRN (Reason: Pain) lorazepam 1 mg tablet 1 mg PO BID fluticasone propionate 50 mcg/actuation spray,suspension 2 spray INTRANASAL DAILY metformin 500 mg tablet extended release 24 hr 500 mg PO DAILY duloxetine 60 mg capsule,delayed release(DR/EC) 60 mg PO DAILY Centrum 0.4-162-18 mg Tablet 1 tab PO DAILY cyclobenzaprine 10 mg tablet 10 mg PO BID PRN (Reason: MUSCLE SPASMS) Discharge Orders: Discharge Order (Routine); Ordered 07/05/22 Ordered By: Inderjit Thomas/Other Patient Handouts: Managing Type 2 Diabetes Admission Data Admit Date/Time: 07/04/22 00:37 Attending Provider: Inderjit Yañez Admit Provider: Sarah Laboy Primary Care Provider: PCP,NO Other Providers: Sarah Laboy ; Nini Ojeda ; Miracle Mercado ; Cee Musa Coding Level of Care Code D/C DAY MANAGEMENT >30 MINS Diagnoses COVID-19 U07.1 Anxiety F41.9 Diabetes E11.9 Fibromyalgia M79.7 Suicidal ideation R45.851
== END 2022-07-05 14:12 | disposition home or self-care (01) ==
LOC: ED 17:49 → 3E 17:49 → SUATTDRO 07-04 00:37 → 3E 07-04 02:03
DX: Z79.899 Other long term (current) drug therapy; E11.9 Type 2 diabetes mellitus without complications; Z88.8 Allergy status to other drugs, medicaments and biological substances; R45.851 Suicidal ideations; U07.1 COVID-19; Z79.84 Long term (current) use of oral hypoglycemic drugs; M79.7 Fibromyalgia; F41.9 Anxiety disorder, unspecified